=== PATIENT | male | born 1965 | race Caucasian/White ===

== ENCOUNTER 2019-08-04 01:19 | Observation (INO) | payer BC ==
[2019-08-04] VITALS (288 sets, daily range): BP systolic 117–133; BP diastolic 65–86; PULSE 72–99; TEMP 98.6–99.9; O2SAT 80–100
[~2019-08-04] VITALS: Ht 182.9 cm; Wt 98.2 kg
[2019-08-04] MEDS ORDERED: KLOR-CON SPRIN10 MEQ PO (01:34)
[2019-08-04] MEDS ORDERED: HCTZ 25MG TAB25 MG PO (01:34)
[2019-08-04] MEDS ORDERED: ASPIRIN E.C. 8181 MG PO (01:35)
[2019-08-04 01:49] LABS: BASO # 0.1 (0.0-0.2); BASO % 0.5 % (0.0-2.0); EOS # 0.3 (0.0-0.7); EOS % 1.8 % (0-4.0); GRAN # 12.4 (1.4-6.5); GRAN % 87.3 % (42.2-75.2); HEMATOCRIT 46.2 % (42.0-52.0); HEMOGLOBIN 16.2 g/dl (13.5-18.0); LYMPH # 0.7 (1.2-3.4); LYMPH % 4.9 % (20.0-51.0); MEAN CELL VOLUME 90 fl (80.0-100.0); MEAN CORPUSCULAR HEMOGLOBIN 32 pg (27.0-31.0); MEAN CORPUSCULAR HGB CONC 35 g/dl (33.0-37.0); MEAN PLATELET VOLUME 9.7 fl (7.4-10.4); MONO # 0.8 (0.1-0.6); MONO % 5.3 % (1.7-9.3); PLATELET COUNT 272 K/mm3 (130-400); RED BLOOD COUNT 5.13 M/mm3 (4.20-5.60); REDCELL DISTRIBUTION WIDTH-CV 12.3 % (11.5-14.5)
[2019-08-04 01:57] LABS: ALANINE AMINOTRANSFERASE 45 U/L (21-72); ALBUMIN 4.5 gm/dL (3.5-5.0); ALKALINE PHOSPHATASE 74 U/L (50-136); ANION GAP 10 mmol/L (7-16); AST,SGOT 33 U/L (15-37); BILIRUBIN,TOTAL 0.7 mg/dL (0.0-1.0); BLOOD UREA NITROGEN 28 mg/dL (9-20); CALCIUM 9.2 mg/dL (8.4-10.2); CARBON DIOXIDE 31 mmol/L (22-30); CHLORIDE 99 mmol/L (98-107); CREATININE, serum 1.17 (0.66-1.25); GLUCOSE 128 mg/dL (74-106); SODIUM 141 mmol/L (137-145)
[2019-08-04 02:01] LABS: POTASSIUM 2.9 mmol/L (3.4-5.0)
[2019-08-04 02:09] LABS: TROPONIN-I < 0.012 ng/mL (0.000-0.035)
[2019-08-04 02:12] LABS: MAGNESIUM 1.6 mg/dL (1.6-2.3)
[2019-08-04 02:29] LABS: PROLACTIN 28.9 ng/mL (3.7-17.9)
[2019-08-04 05:38] LABS: POTASSIUM 3.4 mmol/L (3.4-5.0)
[2019-08-04 05:57] LABS: CHOLESTEROL RISK RATIO 3.8
--- NOTE | 2019-08-04 07:40 | NUR ---
BEDSIDE REPORT RECEIVED FROM JOANNA PINA. PATIENT IS LYING IN BED WITH NO COMPLAINTS. VS WNL ON MONITOR. SR ON TELE. CARE TAKEN OVER AT THIS TIME.
--- NOTE | 2019-08-04 08:45 | NUR ---
URINE SPECIMEN COLLECTED AT THIS TIME AND PATIENT LEAVES FOR MRI WITH UTILITY WORKER DRIVERKARLA
[2019-08-04 09:04] LABS: MUCOUS Present /lpf; PH 6 (5-8); SQUAMOUS EPITHELIAL None Seen /hpf; URINE APPEARANCE Clear; URINE BACTERIA None Seen /hpf; URINE BILIRUBIN Negative (NEGATIVE); URINE BLOOD 3+ (NEGATIVE); URINE COLOR Yellow; URINE GLUCOSE Negative (NEGATIVE); URINE KETONE Negative (NEGATIVE); URINE LEUKOCYTE ESTERASE Negative (NEGATIVE); URINE NITRATE Negative (NEGATIVE); URINE PROTEIN(semi-quant) Negative (NEGATIVE); URINE RBC >50 /hpf
[2019-08-04 09:17] LABS: TRICYCLIC ANTIDEPRESS URINE NEGATIVE
[2019-08-04 09:29] LABS: COLLECTION METHOD CLEAN CATCH
--- NOTE | 2019-08-04 11:19 | NUR ---
Report received from Ruth MARSHALL and care resumed. Pt resting upon entering. Denies any pain or concerns. Dr Mcdermott in to see pt at this time. RT also here for EEG. Will continue to follow.
--- NOTE | 2019-08-04 11:26 | NUR ---
ADOLESCENT COORDINATOR student attended clinical rounds with the team. The patient received an MRI this day and a EEG was ordered. The patient is to transfer out of ICU this day.
--- NOTE | 2019-08-04 16:20 | NUR ---
Report called to Natalie MARSHALL on medical. Pt to transfer to room 312 on tele.
--- NOTE | 2019-08-04 17:10 | NUR ---
Patient to room 312 by wheelchair from ICU, at the bedside. Oriented patient to room and call light. Patient A&Ox4, denies pain and discomfort. IV CDI, fluids infusing. Patient ambulated to recliner with standby assist. No further needs expressed from patient. Patient instructed to call nursing staff for assistance with ambulation. Call light within reach
--- NOTE | 2019-08-04 18:00 | NUR ---
Patient sitting up in recliner watching TV. Denies pain and discomfort. Telemetry leads reapplied. IV CDI, fluids infusing. VSS. No further needs expressed from patient. Call light within reach
--- NOTE | 2019-08-04 20:30 | NUR ---
Initial shift assessment done- denies any chest pain, IV fluids of NS at 125cc/hr, Tele on
[2019-08-05 03:42] VITALS: BP 123/75; PULSE 68
--- NOTE | 2019-08-05 06:20 | NUR ---
Denies chest pain- Tele on, Did have 3 episodes of liquid stools during the night- IV fluids continue at 125cc/hr
[2019-08-05 06:41] LABS: BASO % 0.4 % (0.0-2.0); EOS # 0.2 (0.0-0.7); EOS % 4.2 % (0-4.0); GRAN # 2.7 (1.4-6.5); GRAN % 60.3 % (42.2-75.2); LYMPH # 1.1 (1.2-3.4); LYMPH % 24.7 % (20.0-51.0); MEAN CELL VOLUME 93 fl (80.0-100.0); MEAN CORPUSCULAR HGB CONC 34 g/dl (33.0-37.0); MEAN PLATELET VOLUME 9.6 fl (7.4-10.4); MONO # 0.5 (0.1-0.6); MONO % 10.2 % (1.7-9.3); PLATELET COUNT 182 K/mm3 (130-400); RED BLOOD COUNT 3.87 M/mm3 (4.20-5.60); REDCELL DISTRIBUTION WIDTH-CV 12.7 % (11.5-14.5)
[2019-08-05 06:46] LABS: HEMATOCRIT 35.8 % (42.0-52.0); HEMOGLOBIN 12.3 g/dl (13.5-18.0); MEAN CORPUSCULAR HEMOGLOBIN 32 pg (27.0-31.0)
[2019-08-05 06:56] LABS: CALCIUM 7.8 mg/dL (8.4-10.2); CREATININE, serum 0.88 (0.66-1.25); POTASSIUM 3.5 mmol/L (3.4-5.0)
[2019-08-05 07:54] VITALS: BP 130/66; PULSE 65; TEMP 98.4
--- NOTE | 2019-08-05 09:48 | NUR ---
0800 shift assessment as charted, pt alert and awake, neuro checks within normal limits, pt is resting in bed, IV site patent in L arm w/ saline infusing @ 125/Ml per hour. Pt voices no acute concerns.
[2019-08-05 11:11] VITALS: BP 130/75; PULSE 63; TEMP 98.4
[2019-08-05] MEDS ORDERED: CIPRO 500MG TA500 MG PO (14:11)
--- NOTE | 2019-08-05 17:47 | NUR ---
Patient discharged home at 1630. Discharge instructions read by patient per his request. Personal belongings sent with patient. Accompanied by staff, left facility via private vehicle.
== END 2019-08-05 16:30 | disposition home or self-care (01) ==
LOC: COL.ER 01:19 → ICU 03:46 → MEDICAL 16:51
PROVIDERS: Emergency Medicine; Hospitalist; Nurse Practitioner Family; ADMIT Student in an Organized Health Care Education/Training Program
DX: R55 Syncope and collapse (principal); I10 Essential (primary) hypertension; K63.9 Disease of intestine, unspecified; E87.6 Hypokalemia; E83.42 Hypomagnesemia; Z79.82 Long term (current) use of aspirin; E78.00 Pure hypercholesterolemia, unspecified; I07.1 Rheumatic tricuspid insufficiency; Z88.8 Allergy status to other drugs, medicaments and biological substances; Z83.3 Family history of diabetes mellitus; Z82.49 Family history of ischemic heart disease and other diseases of the circulatory system
CPT/HCPCS: A9585; G0378; J1650; J2405; J3475; J3480; J7030